=== PATIENT | male | born 1970 | race African-American/Black ===

== ENCOUNTER 2021-08-14 10:14 | Day surgery (SDC) | payer OTHER ==
[2021-08-05 16:31] VITALS: BMI 28.0
[2021-08-14] MEDS ORDERED: BUPIVACAINE HCL/PF 0.25% (2.5MG/ML) 10 ML VIAL ONE (10:55)
[2021-08-14] MEDS ORDERED: LIDOCAINE HCL 1%, 10 MG/ML (20ML VIAL) ONE (10:55)
[2021-08-14] MEDS ORDERED: BUPIVACAINE HCL 100 ML ONE (10:57)
[2021-08-14] MEDS ORDERED: BUPIVACAINE HCL 50 ML ONE ×3 (10:59→13:29)
[2021-08-14] MEDS ORDERED: LIDOCAINE HCL 2% (20ML MULTI-DOSE VIAL) ONE (11:22)
[2021-08-14] MEDS ORDERED: MIDAZOLAM HCL 2 MG/2 ML SINGLE DOSE VIAL ONE (11:35)
[2021-08-14] MEDS ORDERED: PROPOFOL 20 ML ONE ×4 (11:35→12:35)
[2021-08-14] MEDS ORDERED: DEXAMETHASONE SOD PHOSPHATE 4 MG/1 ML VIAL ONE (11:46)
[2021-08-14] MEDS ORDERED: ceFAZolin SODIUM 1 GM VIAL ONE ×2 (11:47)
[2021-08-14] MEDS ORDERED: ONDANSETRON 4 MG/2 ML VIAL IVPUSH PRN (13:45)
[2021-08-14] MEDS ORDERED: oxyCODONE HCL 5 MG TABLET PO PRN (13:45)
[2021-08-14] MEDS ORDERED: LACTATED RINGERS SOLUTION 1,000 ML IV SCH (13:45)
[2021-08-14 15:49] VITALS: PULSE 74; TEMP 96.8
[2021-08-14 16:00] VITALS: BP 132/76
== END 2021-08-14 15:05 | disposition home or self-care (01) ==
LOC: FASU 10:14
PROVIDERS: ATTEND Podiatrist Foot Surgery
PROC: 0QSP04Z Reposition Left Metatarsal with Internal Fixation Device, Open Approach (ICD-10-PCS; principal; 2021-08-14 12:09)
PROC: 0SRQ0JZ Replacement of Left Toe Phalangeal Joint with Synthetic Substitute, Open Approach (ICD-10-PCS; 2021-08-14 12:09)
PROC: 0QBP0ZZ Excision of Left Metatarsal, Open Approach (ICD-10-PCS; 2021-08-14 12:09)
DX: M20.12 Hallux valgus (acquired), left foot (principal); M20.42 Other hammer toe(s) (acquired), left foot; M25.775 Osteophyte, left foot
CPT/HCPCS: 73630-TC-LT; 88304-TC; 88311-TC